=== PATIENT | male | born 1990 | race Caucasian/White ===

== ENCOUNTER 2018-11-22 02:09 | Emergency (ER) | payer BC, OTHER ==
[2018-11-22 02:25] VITALS: RESP 18
[2018-11-22] MEDS ORDERED: KETOROLAC 30 MG/ML 1 ML VIAL IM STA (02:46)
--- NOTE | 2018-11-22 03:08 | XR ---
EXAM: XR Left Ribs, 2 Views CLINICAL HISTORY: Pain after fall TECHNIQUE: AP chest and Frontal and oblique views of the left ribs. COMPARISON: None. FINDINGS: Lungs: Unremarkable as visualized. No consolidation. Pleural space: Unremarkable. No pneumothorax. Bones/joints: Unremarkable. No acute fracture. IMPRESSION: No radiographic evidence of acute left rib fractures.
--- NOTE | 2018-11-22 03:24 | ED ---
Fall HPI - General Chief Complaint: Fall Stated Complaint: [facility]-Fall,rib injury Time Seen by Provider: 11/22/18 02:32 Source: patient Mode of arrival: ambulatory - History of Present Illness Initial Comments: 28-year-old male patient presents to the emergency department today for evaluation of left rib pain. Patient states around 9:00 he slipped and fell at work falling forward landing with his arms around his chest. Patient states since then he has been having pain to the anterior left ribs. Patient states the pain worsens when he takes a deep breath. He denies any shortness of breath, cough, hemoptysis. Denies any abdominal pain, nausea, or vomiting. He denies hitting his head or losing consciousness. Denies taking any medication for his symptoms. He denies any other injuries. Patient denies any headache, neck pain, back pain, dizziness, weakness, or difficulties with bowel movements or urination. - Related Data Previous Rx's Medication Instructions Recorded RX: Ibuprofen [Motrin] 600 mg PO Q8HR PRN #30 tab 11/22/18 Allergies Allergy/AdvReac Type Severity Reaction Status Date / Time cashew nut Allergy Unknown Verified 11/22/18 02:25 Childhood Review of Systems ROS Statement: Those systems with pertinent positive or pertinent negative responses have been documented in the HPI. ROS Other: All systems not noted in ROS Statement are negative. Past Medical History Past Medical History: No Reported History History of Any Multi-Drug Resistant Organisms: None Reported Past Surgical History: Appendectomy, Cholecystectomy Past Psychological History: Bipolar Smoking Status: Never smoker Past Alcohol Use History: None Reported Past Drug Use History: None Reported General Exam Limitations: no limitations General appearance: alert, in no apparent distress, other (This is a well- developed, well-nourished adult male patient in no acute distress. Vital signs upon presentation are temperature 98.8F, pulse 110, respirations 18, blood pressure 131/82, pulse ox 95% on room air.) Neck exam: Present: normal inspection, full ROM, other (Nontender, no step-off, no deformity to firm midline palpation of the posterior cervical spine. Full range of motion without pain or limitation.). Absent: tenderness, meningismus, lymphadenopathy Respiratory exam: Present: normal lung sounds bilaterally, chest wall tenderness (Left anterior chest wall tenderness over ribs 8 and 9.). Absent: respiratory distress, wheezes, rales, rhonchi, stridor Cardiovascular Exam: Present: regular rate, normal rhythm, normal heart sounds. Absent: systolic murmur, diastolic murmur, rubs, gallop, clicks GI/Abdominal exam: Present: soft, normal bowel sounds, other (No abdominal ecchymosis). Absent: distended, tenderness, guarding, rebound, rigid Neurological exam: Present: alert, oriented X3, CN II-XII intact Psychiatric exam: Present: normal affect, normal mood Skin exam: Present: warm, dry, intact, normal color. Absent: rash Course Vital Signs 11/22/18 02:20 Temperature 98.8 F Pulse Rate 110 H Respiratory 18 Rate Blood Pressure 131/82 O2 Sat by Pulse 95 Oximetry Medical Decision Making - Medical Decision Making 28-year-old male patient presents emergency department today for evaluation of left rib pain after a slip and fall accident. Physical examination did reveal some mild tenderness to the left anterior ribs. Chest x-ray and rib views were obtained and showed no evidence of acute rib fracture. No pneumothorax. Patient was given IM Toradol here in the department. He'll be discharged home to follow-up with [facility] for further evaluation. He was given incentive spirometer to prevent pneumonia. He is instructed to apply ice. Return parameters were discussed in detail. He verbalizes understanding and agrees with this plan. - Radiology Data Radiology results: report reviewed, image reviewed AP chest and frontal oblique views of the left ribs are obtained. Report was reviewed in its entirety. Impression by Dr. Marroquin shows no radiographic evidence of acute rib fractures Disposition Clinical Impression: Rib pain on left side Disposition: HOME SELF-CARE Condition: Good Instructions (If sedation given, give patient instructions): Rib Contusion (ED) Additional Instructions: Apply ice to the painful areas. Use incentive spirometer as directed. Return to the emergency department for any new, worsening, or concerning symptoms. Prescriptions: RX: Ibuprofen [Motrin] 600 mg PO Q8HR PRN #30 tab PRN Reason: Pain Is patient prescribed a controlled substance at d/c from ED?: No Referrals: Chun Edwards MD [Primary Care Provider] - 1-2 days Time of Disposition: 03:24
[2018-11-22 03:52] VITALS: BP 133/89; PULSE 100; TEMP 98.4
== END 2018-11-22 03:52 | disposition home or self-care (01) ==
LOC: EC 02:09
DX: R07.81 Pleurodynia (principal); Z91.018 Allergy to other foods; W01.0XXA Fall on same level from slipping, tripping and stumbling without subsequent striking against object, initial encounter; Y92.69 Other specified industrial and construction area as the place of occurrence of the external cause; Y99.0 Civilian activity done for income or pay
CPT/HCPCS: 71101; 99283; 96372; J1885

== ENCOUNTER → 2019-05-27 | Outpatient (CLI) | payer BC ==
--- NOTE | 2019-05-28 04:29 | MR ---
EXAMINATION TYPE: MR ankle LT wo con DATE OF EXAM: 05/27/2019 COMPARISON: HISTORY: Arthralgia of the lt ankle and/or foot Standard multiplanar, multisequence MRI departmental protocol Multiplanar, multisequence images of the left ankle were acquired. FINDINGS: Ankle mortise is anatomic. Joint spaces are fairly normal. Achilles tendon is intact. Plantar fascia appears intact. There is small ankle joint effusion and small 9 mm synovial cyst at the posterior asp ect of the subtalar joint. The collateral ligaments appear intact. There is small amount of fluid around the flexor pollicis rose teo tendon. The medial and lateral flexor tendons appear intact. I see no focal bone destruction. The re is no bone edema. There is no evidence of a soft tissue mass. IMPRESSION: Mild ankle joint effusion and subtalar joint effusion consistent with synovitis. No fracture seen. No evidence of ligament or tendon tear. Small posterior synovial cyst.
--- NOTE | 2019-05-28 04:33 | MR ---
EXAMINATION TYPE: MR foot LT wo con DATE OF EXAM: 05/27/2019 COMPARISON: None HISTORY: Arthralgia of the lt ankle and/or foot Standard multiplanar, multisequence MRI departmental protocol Multiplanar, multisequence images of the left foot were acquired. FINDINGS: There is mild subcutaneous edema in the forefoot. The metatarsals are intact. The tarsal bones appear intact. Joint spaces are fairly normal. There is no evidence of a fracture. The toes appear intact. There is increased joint fluid at the MP joints. The flexor tendons of the foot appear intact. There is no subluxation. IMPRESSION: There is increased synovial fluid at the MP joints consistent with nonspecific synovitis. Mild soft t issue edema in the forefoot. No fracture seen.
== END | disposition home or self-care (01) ==
LOC: RADMRIMAIN 20:20
PROVIDERS: ATTEND Family Medicine
DX: M79.89 Other specified soft tissue disorders (principal); M25.579 Pain in unspecified ankle and joints of unspecified foot